=== PATIENT | female | born 1955 | race Caucasian/White ===

== ENCOUNTER 2016-06-23 11:15 | Outpatient (CLI) | payer MEDICARE, MEDICAID | END 2016-06-23 11:16 | disposition home or self-care (01) | DX: M19.072 Primary osteoarthritis, left ankle and foot (principal) ==

== ENCOUNTER 2016-09-14 19:59 | Outpatient (CLI) | payer MEDICARE, MEDICAID | END 2016-09-14 20:00 | disposition home or self-care (01) | DX: L40.0 Psoriasis vulgaris (principal); Z79.899 Other long term (current) drug therapy ==

== ENCOUNTER 2017-05-24 13:35 | Outpatient (CLI) | payer MEDICARE ==
[~2017-05-24 13:35] MED LIST: IOPAMIDOL-300 100 ML VIAL ONE; IOPAMIDOL-300 50 ML VIAL ONE
[2017-05-24 13:50] LABS: BASOPHILS % (AUTO) 0.6 %; EOSINOPHILS # (AUTO) 0.1 10^3/uL (0.0-0.7); EOSINOPHILS % (AUTO) 1.6 %; HGB - HEMOGLOBIN 12.5 g/dL (12.0-16.0); LYMPHOCYTES # (AUTO) 2.5 10^3/uL (1.5-3.5); LYMPHOCYTES % (AUTO) 43.4 %; MEAN CORPUSCULAR HEMOGLOBIN 31.2 pg (27.0-31.0); MEAN CORPUSCULAR HGB CONC 33.9 g/dL (32.0-36.0); MEAN PLATELET VOLUME 8.2 fL (7.9-10.8); MONOCYTES # (AUTO) 0.5 10^3/uL (0.0-1.0); MONOCYTES % (AUTO) 9.1 %; NEUTROPHILS # (AUTO) 2.6 10^3/uL (1.5-6.6); NEUTROPHILS % (AUTO) 45.3 %; RED BLOOD COUNT 4.02 10^6/uL (4.20-5.40); RED CELL DISTRIBUTION WIDTH 13.2 % (12.0-15.0); UNCORRECTED WHITE BLOOD COUNT 5.7 x10^3/uL; WHITE BLOOD COUNT 5.7 x10^3/uL (4.8-10.8)
[2017-05-24 14:01] LABS: ALBUMIN/GLOBULIN RATIO 1.1 (1.0-2.2); BILIRUBIN,TOTAL 0.4 mg/dL (0.2-1.0); CALCIUM 9.4 mg/dL (8.5-10.3); CREATININE 0.7 mg/dL (0.4-1.0); POTASSIUM 4.9 mmol/L (3.5-5.0); TOTAL PROTEIN 8.1 g/dL (6.7-8.2)
[2017-05-24] MEDS ORDERED: IOPAMIDOL-300 50 ML VIAL ONE (14:03)
[2017-05-24] MEDS ORDERED: IOPAMIDOL-300 100 ML VIAL ONE (14:03)
[2017-05-24] MEDS ORDERED: IOPAMIDOL-300 100 ML VIAL IVP ONE (15:05)
[2017-05-24] MEDS ORDERED: IOPAMIDOL-300 50 ML VIAL PO ONE (15:05)
--- NOTE | 2017-05-25 13:17 | CT Report ---
DATE OF SERVICE: 05/24/2017 EXAM: CT OF ABDOMEN AND PELVIS WITH CONTRAST: 05/24/2017 CLINICAL INDICATION: Weight loss, pain. TECHNIQUE: Axial CT images of the abdomen and pelvis were obtained with 100 mL Isovue 300 intravenou sly as well as oral contrast. No previous exam is available for comparison. FINDINGS: Limited evaluation of the lung bases is unremarkable. ABDOMEN: The liver, spleen, pancreas and adrenal glands are unremarkable. The kidneys demonstrate t iny cortical cysts. No hydronephrosis or solid renal lesion is appreciated. The patient is status post cholecyst ectomy. No bowel dilatation, free gas, or free fluid is present. No abdominal adenopathy is seen. PELVIS: The appendix is seen in the right lower quadrant, and is normal in caliber. No pelvic adeno marlo or free fluid is present. The osseous structures demonstrate degenerative changes. IMPRESSION: POSTOPERATIVE CHANGES. NO EVIDENT ETIOLOGY FOR PATIENT'S PAIN AND WEIGHT LOSS. In accordance with CT protocol optimization, one or more of the following dose reduction techniques w ere utilized for this exam: automated exposure control, adjustment of mA and/or KV based on patient size, or use of iterative reconstructive technique. TD: 05/25/2017 12:22
== END 2017-05-24 13:36 | disposition home or self-care (01) ==
LOC: LAB 13:35 → DI 13:36
PROVIDERS: ATTEND Physician Assistant
DX: K52.9 Noninfective gastroenteritis and colitis, unspecified (principal); R63.4 Abnormal weight loss; R11.0 Nausea; R10.9 Unspecified abdominal pain; E11.9 Type 2 diabetes mellitus without complications
CPT/HCPCS: 36415; 74177; 80053; 85025; Q9967

== ENCOUNTER 2017-11-12 18:05 | Outpatient (CLI) | payer MEDICARE ==
[2017-11-12 18:28] LABS: BASOPHILS % (AUTO) 0.5 %; EOSINOPHILS % (AUTO) 2.4 %; HGB - HEMOGLOBIN 12.5 g/dL (12.0-16.0); LYMPHOCYTES % (AUTO) 52.5 %; MEAN CORPUSCULAR HEMOGLOBIN 32.3 pg (27.0-31.0); MEAN PLATELET VOLUME 7.9 fL (7.9-10.8); MONOCYTES % (AUTO) 6.4 %; NEUTROPHILS % (AUTO) 38.2 %; PLT - PLATELET COUNT 202 10^3/uL (130-450); RED BLOOD COUNT 3.87 10^6/uL (4.20-5.40); RED CELL DISTRIBUTION WIDTH 13.6 % (12.0-15.0); WHITE BLOOD COUNT 9.8 x10^3/uL (4.8-10.8)
[2017-11-12 18:42] LABS: ABNORMAL LYMPHS % (MANUAL) 0 %; ALT ALANINE AMINOTRANSFERASE 12 IU/L (10-60); AST ASPARTATE AMINOTRANSFERASE 17 IU/L (10-42)
[2017-11-12 19:53] LABS: BAND NEUTROPHILS % (MANUAL) 1 %; DIFFERENTIAL COMMENT MANUAL DIFFERENTIAL; EOSINOPHILS # (MANUAL) 0.2 10^3/uL (0-0.7); LYMPHOCYTES % (MANUAL) 60 %; MONOCYTES # (MANUAL) 0.4 10^3/uL (0.0-1.0); NEUTROPHILS # (MANUAL) 3.2 10^3/uL (1.5-6.6); NEUTROPHILS % (MANUAL) 32 %; PLATELET ESTIMATE, MANUAL NORMAL (130-450,000) (NORMAL); PLATELET MORPHOLOGY NORMAL APPEARANCE (NORMAL); RBC MORPHOLOGY (MULTIPLE) NORMAL APPEARANCE (NORMAL)
== END 2017-11-12 18:06 | disposition home or self-care (01) ==
LOC: LAB 18:05
PROVIDERS: ATTEND Physician Assistant Medical
DX: L40.0 Psoriasis vulgaris (principal); Z79.899 Other long term (current) drug therapy
CPT/HCPCS: 36415; 81599; 84450; 84460; 85025; 86480

== ENCOUNTER 2019-07-03 16:46 | Outpatient (CLI) | payer MEDICARE | END 2019-07-03 16:47 | disposition short-term general hospital (02) | LOC: EMS 16:46 | PROVIDERS: ATTEND Surgery | DX: R19.7 Diarrhea, unspecified (principal); R53.1 Weakness | CPT/HCPCS: A0425; A0427 ==

== ENCOUNTER 2019-07-15 11:33 | Outpatient (CLI) | payer MEDICARE ==
--- NOTE | 2019-07-15 13:34 | XRAY Report ---
Reason: DYSPNEA, UNSPECIFIED Procedure Date: 07/15/2019 Accession Number: [id number] / [id number] Procedure: XRS - Chest 2 View X-Ray CPT Code: 69241 Final Report FULL RESULT: EXAM: CHEST RADIOGRAPHY EXAM DATE: 07/15/2019 11:47 AM. CLINICAL HISTORY: Dyspnea, unspecified. COMPARISON: CHEST 2 VIEW PA/LAT 11/16/2015 11:59 AM. TECHNIQUE: 2 views. FINDINGS: Lungs/Pleura: Atelectasis versus infiltrate extending from the right hilum to the medial right lung base. Lungs elsewhere appear clear. No pleural fluid collections. Mediastinum: Heart and mediastinal contours are unremarkable. Other: None. IMPRESSION: Medial right lung base atelectasis versus infiltrate. RADIA
== END 2019-07-15 11:34 | disposition home or self-care (01) ==
LOC: DI.S 11:33
PROVIDERS: ATTEND Physician Assistant
DX: R91.8 Other nonspecific abnormal finding of lung field (principal)
CPT/HCPCS: 71046

== ENCOUNTER 2019-07-16 14:20 | Outpatient (CLI) | payer MEDICARE ==
[2019-07-16 17:16] LABS: BASOPHILS % (AUTO) 0.3 %; EOSINOPHILS # (AUTO) 0.1 10^3/uL (0.0-0.7); EOSINOPHILS % (AUTO) 1.3 %; HGB - HEMOGLOBIN 9.5 g/dL (12.0-16.0); LYMPHOCYTES # (AUTO) 1.7 10^3/uL (1.5-3.5); LYMPHOCYTES % (AUTO) 21.2 %; MEAN CORPUSCULAR HEMOGLOBIN 29.6 pg (27.0-31.0); MEAN CORPUSCULAR HGB CONC 29.8 g/dL (32.0-36.0); MEAN CORPUSCULAR VOLUME 99.4 fL (81.0-99.0); MEAN PLATELET VOLUME 10.4 fL (7.9-10.8); MONOCYTES # (AUTO) 0.6 10^3/uL (0.0-1.0); MONOCYTES % (AUTO) 7.3 %; NEUTROPHILS # (AUTO) 5.6 10^3/uL (1.5-6.6); NEUTROPHILS % (AUTO) 69.5 %; PLT - PLATELET COUNT 212 10^3/uL (130-450); RED BLOOD COUNT 3.21 10^6/uL (4.20-5.40); RED CELL DISTRIBUTION WIDTH 14.5 % (12.0-15.0)
[2019-07-16 17:28] LABS: CALCIUM 8.2 mg/dL (8.5-10.3); CREATININE 0.8 mg/dL (0.4-1.0)
== END 2019-07-16 23:59 | disposition home or self-care (01) ==
LOC: LAB.R 14:20
PROVIDERS: ATTEND Physician Assistant
DX: D64.9 Anemia, unspecified (principal)
CPT/HCPCS: 80048; 85025

== ENCOUNTER 2020-10-11 10:55 | Outpatient (CLI) | payer MEDICARE, MEDICAID ==
[2020-10-11 15:26] LABS: BASOPHILS % (AUTO) 0.4 %; EOSINOPHILS # (AUTO) 0.6 10^3/uL (0.0-0.7); EOSINOPHILS % (AUTO) 8.1 %; HCT - HEMATOCRIT 35.1 % (37.0-47.0); HGB - HEMOGLOBIN 11.1 g/dL (12.0-16.0); LYMPHOCYTES # (AUTO) 3.3 10^3/uL (1.5-3.5); LYMPHOCYTES % (AUTO) 45.7 %; MEAN CORPUSCULAR HEMOGLOBIN 29.4 pg (27.0-31.0); MEAN CORPUSCULAR HGB CONC 31.6 g/dL (32.0-36.0); MEAN CORPUSCULAR VOLUME 93.1 fL (81.0-99.0); MEAN PLATELET VOLUME 10.3 fL (7.9-10.8); MONOCYTES # (AUTO) 0.8 10^3/uL (0.0-1.0); MONOCYTES % (AUTO) 10.5 %; NEUTROPHILS # (AUTO) 2.5 10^3/uL (1.5-6.6); NEUTROPHILS % (AUTO) 35.2 %; PLT - PLATELET COUNT 225 10^3/uL (130-450); RED BLOOD COUNT 3.77 10^6/uL (4.20-5.40); RED CELL DISTRIBUTION WIDTH 13.1 % (12.0-15.0); WHITE BLOOD COUNT 7.1 x10^3/uL (4.8-10.8)
[2020-10-11 15:53] LABS: ALBUMIN 3.9 g/dL (3.2-5.5); ALKALINE PHOSPHATASE 42 IU/L (42-121); ALT ALANINE AMINOTRANSFERASE 14 IU/L (10-60); AST ASPARTATE AMINOTRANSFERASE 23 IU/L (10-42); BILIRUBIN,TOTAL 0.5 mg/dL (0.2-1.0); TOTAL PROTEIN 8.1 g/dL (6.7-8.2)
[2020-10-11 16:16] LABS: BILIRUBIN,DIRECT < 0.1 mg/dL (0.1-0.5)
[2020-10-13 11:36] LABS: NIL 0.04 IU/mL
== END 2020-10-11 10:56 | disposition home or self-care (01) ==
LOC: LAB.S 10:55
PROVIDERS: ATTEND Physician Assistant Medical
DX: L40.0 Psoriasis vulgaris (principal); Z79.899 Other long term (current) drug therapy
CPT/HCPCS: 36415; 80076; 85025; 86480

== ENCOUNTER 2021-12-09 12:41 | Outpatient (CLI) | payer MEDICARE, MEDICAID ==
[2021-12-09 13:42] LABS: BASOPHILS # (AUTO) 0.1 10^3/uL (0.0-0.1); BASOPHILS % (AUTO) 0.8 %; EOSINOPHILS # (AUTO) 0.5 10^3/uL (0.0-0.7); EOSINOPHILS % (AUTO) 7.7 %; HCT - HEMATOCRIT 35.6 % (37.0-47.0); HGB - HEMOGLOBIN 11.6 g/dL (12.0-16.0); LYMPHOCYTES # (AUTO) 3.2 10^3/uL (1.5-3.5); LYMPHOCYTES % (AUTO) 47.7 %; MEAN CORPUSCULAR HEMOGLOBIN 30.4 pg (27.0-31.0); MEAN CORPUSCULAR HGB CONC 32.6 g/dL (32.0-36.0); MEAN CORPUSCULAR VOLUME 93.2 fL (81.0-99.0); MEAN PLATELET VOLUME 9.8 fL (7.9-10.8); MONOCYTES # (AUTO) 0.8 10^3/uL (0.0-1.0); MONOCYTES % (AUTO) 11.3 %; NEUTROPHILS # (AUTO) 2.1 10^3/uL (1.5-6.6); NEUTROPHILS % (AUTO) 32.3 %; PLT - PLATELET COUNT 173 10^3/uL (130-450); RED BLOOD COUNT 3.82 10^6/uL (4.20-5.40); WHITE BLOOD COUNT 6.6 x10^3/uL (4.8-10.8)
[2021-12-09 13:56] LABS: BILIRUBIN,TOTAL 0.6 mg/dL (0.2-1.0); CALCIUM 9.3 mg/dL (8.5-10.3); CREATININE 0.9 mg/dL (0.4-1.0); POTASSIUM 4.6 mmol/L (3.5-5.0); TOTAL PROTEIN 7.9 g/dL (6.7-8.2)
--- NOTE | 2021-12-09 14:44 | Ultrasound Report ---
PROCEDURE: Head or Neck Soft Tissue INDICATIONS: MASS OF NECK TECHNIQUE: Real-time scanning was performed of the thyroid gland, with image documentation. COMPARISON: Ultrasound thyroid, . FINDINGS: Right: Thyroid lobe measures 1.6 x 1.6 x 4.8 cm, and is homogeneous in echotexture. Left: Thyroid lobe measures 1.9 x 1.3 x 3.8 cm, and is homogenous in echotexture. Isthmus: 3 mm thick. Nodule number: One Location: Left superior Size: 0.6 x 0.4 x 0.4 cm; new. Composition: Solid Echogenicity: Hypoechoic Shape: wider than tall. Margins: Ill-defined Echogenic foci: None Total points: 6 ACR TI-RADS category: TI-RADS 4 IMPRESSION: 1. A small left thyroid nodule, moderately suspicious. Recommend a follow-up ultrasound in 12 months. ACR TI-RADS definitions and recommendations: TI-RADS 1 (benign): 0 points. FNA not needed. TI-RADS 2 (not suspicious): 2 points. FNA not needed. TI-RADS 3 (mildly suspicious): 3 points. "FNA if 2.5 cm or larger, follow up if 1.5 cm or larger (at 1, 3, and 5 years). TI-RADS 4 (moderately suspicious): 4-6 points. "FNA if 1.5 cm or larger, follow up if 1 cm or larger (at 1, 2, 3, and 5 years). TI-RADS 5 (highly suspicious): 7 points or more. "FNA if 1 cm or larger, follow up if 0.5 cm or larger (every year for 5 years). Reviewed by: Shonda Weathers MD on 12/09/2021 2:43 PM PDT Approved by: Shonda Weathers MD on 12/09/2021 2:43 PM PDT Station ID: [id number]
== END 2021-12-09 12:42 | disposition home or self-care (01) ==
LOC: DI 12:41
PROVIDERS: ATTEND Physician Assistant
DX: E04.1 Nontoxic single thyroid nodule (principal); R22.1 Localized swelling, mass and lump, neck
CPT/HCPCS: 36415; 80053; 84443; 85025

== ENCOUNTER 2024-01-01 15:26 | Outpatient (CLI) | payer MEDICARE, MEDICAID ==
--- NOTE | 2024-01-01 18:56 | Ultrasound Report ---
PROCEDURE: Soft Tissue Head or Neck INDICATIONS: THYROID NODULE TECHNIQUE: Real-time scanning was performed of the thyroid gland, with image documentation. COMPARISON: 12/09/2021 FINDINGS: Right: Thyroid lobe measures 4.3 x 1.8 x 1.3 cm. Left: Thyroid lobe measures 3.9 x 1.4 x 1.5 cm Isthmus: 0.2 cm thick. Echotexture: Homogeneous. IMPRESSION: No thyroid nodules are seen. Reviewed by: Sven Alarcon MD on 01/01/2024 6:55 PM PDT Approved by: Sven Alarcon MD on 01/01/2024 6:55 PM PDT Station ID: [id number]
== END 2024-01-01 15:27 | disposition home or self-care (01) ==
LOC: DI 15:26
PROVIDERS: ATTEND Registered Nurse
DX: E04.1 Nontoxic single thyroid nodule (principal)